=== PATIENT | male | born 1975 | race Caucasian/White ===

== ENCOUNTER 2019-07-08 10:02 | Emergency (ER) | payer SELFPAY ==
--- NOTE | 2019-07-08 10:24 | ER Document Report ---
ED Medical Screen (RME) - General Chief Complaint: Flank Pain Stated Complaint: FLANK PAIN Time Seen by Provider: 07/08/19 10:13 Notes: Patient is a 44-year-old male who presents to the emergency department with a chief complaint of bilateral low back pain. He states the pain is a burning/sharp feeling and it radiates down both legs. His pain started about 3 days ago. Patient also states that he has a metallic taste in his mouth. He is supposed to be taking lisinopril, but he has not been taking it due to not having insurance. Exam: No CVA tenderness noted. I have greeted and performed a rapid initial assessment of this patient. A comprehensive ED assessment and evaluation of the patient, analysis of test results and completion of medical decision making process will be conducted by an additional ED providers. TRAVEL OUTSIDE OF THE [place] IN LAST 30 DAYS: No - Related Data Allergies/Adverse Reactions: No Known Allergies Allergy (Verified 07/08/19 10:03) Past Medical History - Social History Frequency of alcohol use: None Drug Abuse: None - Past Medical History Cardiac Medical History: Reports: Hx Hypertension Renal/ Medical History: Denies: Hx Peritoneal Dialysis Psychiatric Medical History: Reports: Hx Depression Traumatic Medical History: Reports: Hx Spine Fracture, Hx Traumatic Brain Injury Past Surgical History: Reports: Hx Tonsillectomy - Immunizations Hx Diphtheria, Pertussis, Tetanus Vaccination: Yes Physical Exam - Vital signs Vitals: Temp Pulse Resp BP Pulse Ox 98.1 F 83 16 157/88 H 95 07/08/19 10:05 07/08/19 10:05 07/08/19 10:05 07/08/19 10:05 07/08/19 10:05 Course - Vital Signs Vital signs: Temp Pulse Resp BP Pulse Ox 98.1 F 83 16 157/88 H 95 07/08/19 10:05 07/08/19 10:05 07/08/19 10:05 07/08/19 10:05 07/08/19 10:05
--- NOTE | 2019-07-08 10:28 | ER Document Report ---
HPI - HPI Patient complains to provider of: back pain Time Seen by Provider: 07/08/19 10:13 Onset/Duration: Gradual Quality of pain: Achy Severity: Moderate Pain Level: 3 Context: This is a 44 yr old male pt with the listed pmh, who has a hx of htn but is not compliant with his lisinopril for over a year, presenting with an acute exacerbation of their chronic lower back pain and sciatica. Patient states that this has been ongoing for 3 days. Patient states that the pain is a sharp achy 7 out of 10 pain with radiation down both legs. typical of his usual pain. nothing different. pt worried it may be a kidney issue so he has been drinking lots of water. Patient states that movement and palpation make the pain worse and rest makes the pain better. Patient denies any numbness, tingling, change of bowel or bladder habits or signs or symptoms of saddle anesthesia. Patient states that secondary to the pain, they have come to the emergency department. No spinal s urgeries. No other falls or trauma. no IV drug use. otc meds not helping much, he also took half of a friends opana and states that didn't help at all and he felt like it made the pain worse. no hx of diabetes or asthma. no recent abx or steroids. no fevers, uti sx, or genitalia complaints. pt able to walk. pt hasn't sought care until now. Patient denies all other complaints at this time. Associated Symptoms: denies: Chest pain, Productive cough, Diarrhea, Fever, Headache, Hurts to breath, Leg swelling, Nausea, Vomiting, Shortness of breath, Weakness Exacerbated by: Movement, Walking Relieved by: Standing, Remaining still Similar symptoms previously: Yes Recently seen / treated by doctor: No - ROS Systems Reviewed and Negative: Yes All other systems reviewed and negative - to include 10 systems, unless mentioned in the hpi - DERM Skin Color: Normal, [place] Past Medical History - General Information source: Patient - Social History Smoking Status: Current Every Day Smoker Frequency of alcohol use: None Drug Abuse: None Family History: DM, Hypertension Patient has suicidal ideation: No Patient has homicidal ideation: No - Past Medical History Cardiac Medical History: Reports: Hx Hypertension - not compliant with meds Renal/ Medical History: Denies: Hx Peritoneal Dialysis Musculoskeletal Medical History: Reports Hx Arthritis - hx of L4 disc disease Psychiatric Medical History: Reports: Hx Depression Traumatic Medical History: Reports: Hx Traumatic Brain Injury Infectious Medical History: Reports: None Past Surgical History: Reports: Hx Tonsillectomy - Immunizations Immunizations up to date: Yes Hx Diphtheria, Pertussis, Tetanus Vaccination: Yes Vertical Provider Document - CONSTITUTIONAL Notes: Vital signs: All vital signs were reviewed per nursing notes. Gen. Appearance: Nontoxic, patient of stated age, sitting comfortably in the bed. pleasant, obese middle aged white male, smiling, speaking in full sentences, in no sign of pain or resp distress other than appears to have pain with going from sitting to standing and from standing to sitting, nontoxic Psychiatric: Alert and oriented x3, pleasant and very conversational, normal affect. Skin: Warm, pink, dry, normal turgor, no rashes. no grossly visible overlying skin changes or signs of trauma. HEENT: Normocephalic, atraumatic, no vargas signs. no raccoon eyes, pupils are equal and reactive to light, extraocular muscles intact, tympanic membranes and canals normal bilat, mucosal membranes moist, pink conjunctiva, no pharyngeal erythema no tonsilar exudate. no drooling, tripoding, voice change or stridor, uvula midline. tongue protrudes midline Neck: Supple, no tenderness, no lymphadenopathy. full rom and full strength. no meningeal signs. no signs of central cord syndrome CV: Regular rate and rhythm, no murmurs Lungs: Clear to auscultation bilaterally, no wheezes, symmetrical chest rise. no chest wall ttp Abdomen: Soft, nontender, nondistended, good bowel sounds, no rebound, rigidity, guarding or peritoneal signs. No CVA tenderness bilaterally. This is a nonacute abdomen. No tenderness over McBurney's point. no grossly visible or palpable abdominal hernias Genitalia: pt deferred Rectal: deferred; however, no sign of loss of bowel or bladder, no soiling of clothing Back: There is increased tissue tension over the paralumbar musculature on the bilat sides. Palpation to this region did reproduce patient's pain exactly. There is no tenderness to palpation along the midline of the cervical, thoracic or lumbar spine. There are no step-offs or deformities noted. no overlying skin changes. Extremities: Distal pulses two out of four, good capillary refill, no edema, cyanosis or clubbing. full rom and full strength in all extremities with pain on bilat hip flexion and extension. no swelling or ttp of the extremities. normal gait. 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 neg nato sign. neg morgan squeeze. no drop foot. no shortening or rotation of the limbs. no obvious deformities. Neuro: Cranial nerves II through XII intact, normal speech, cerebellar function intact. Symmetric smile and faces. reflexes wnl. motor and sensation intact to light touch. - INFECTION CONTROL TRAVEL OUTSIDE OF THE [place] IN LAST 30 DAYS: No Course - Re-evaluation Re-evalutation: 07/08/19 11:39 Pt here for an acute exacerbation of his chronic low back pain and sciatica. he improved with tx here. labs unremarkable other than a mild hyponatremia. ua neg. he is well appearing and neurononfocal. advised sx care. will dc with robaxin and prednisone taper. gave medication precautions. ice/heat to the area. tylenol for any pain. he has no sign of spinal cord involvement, cauda equina, or central cord syndrome. he had no fall or trauma so no imaging was done. advised to limit his po intake secondary to his mild hyponatremia. gave medication precautions. advised to f/u with pcp/orthospine/neurosurg in 1-2 days. return for any worsening symptoms. vss. well appearing. satting well on ra. neurononfocal. pt understands and agrees to plan. On reexam, pt improved with tx listed. remained stable. nontoxic. well appearing. pain controlled. tolerating po. requesting to go home. case discussed with ER Attending, Dr. Cline, who directed and agrees with plan of care and advised no further workup indicated at this time and pt is stable for dc home with close f/u with pcp/specialist. Documentation achieved through voice recording which my lead to some occasional accidental typographical errors. Extensive efforts have been made to proof read documentation to make sure these are the least as possible. Category Date Time Status CBC WITH DIFF [HEME] Stat Lab 07/08/19 10:35 Completed CMP [COMPREHENSIVE METABOLIC PANEL] [CHEM] Stat Lab 07/08/19 10:35 Received LIPASE [CHEM] Stat Lab 07/08/19 10:35 Received URINALYSIS [URIN] Stat Lab 07/08/19 10:15 Received Ketorolac Tromethamine [Toradol Inj/Pf 30 mg/1 ml Sdv] Med 07/08/19 10:57 Once 30 mg IV NOW ONE 07/08/19 11:44 - Vital Signs Vital signs: Temp Pulse Resp BP Pulse Ox 98.1 F 83 16 157/88 H 95 07/08/19 10:05 07/08/19 10:05 07/08/19 10:05 07/08/19 10:05 07/08/19 10:05 - Laboratory Result Diagrams: 07/08/19 10:35 07/08/19 10:35 Laboratory results interpreted by me: 07/08/19 11:42 Labs- Entire Visit 07/08/19 07/08/19 07/08/19 10:15 10:35 10:35 WBC 5.8 RBC 4.78 Hgb 14.7 Hct 42.0 MCV 88 MCH 30.8 MCHC 35.1 RDW 13.3 Plt Count 193 Seg Neutrophils % 70.8 Lymphocytes % 17.9 Monocytes % 8.2 Eosinophils % 2.8 Basophils % 0.3 Absolute Neutrophils 4.1 Absolute Lymphocytes 1.0 Absolute Monocytes 0.5 Absolute Eosinophils 0.2 Absolute Basophils 0.0 Sodium 131.8 L Potassium 4.4 Chloride 96 L Carbon Dioxide 26 Anion Gap 10 BUN 20 Creatinine 0.73 Est GFR ( Amer) > 60 Est GFR (Non-Af Amer) > 60 Glucose 104 Calcium 9.0 Total Bilirubin 0.5 Direct Bilirubin 0.2 Neonat Total Bilirubin Not Reportable Neonat Direct Bilirubin Not Reportable Neonat Indirect Bili Not Reportable AST 30 ALT 31 Alkaline Phosphatase 56 Total Protein 6.6 Albumin 4.2 Lipase 51.6 Urine Color COLORLESS Urine Appearance CLEAR Urine pH 7.0 Ur Specific [place] 1.001 Urine Protein NEGATIVE Urine Glucose (UA) NEGATIVE Urine Ketones NEGATIVE Urine Blood NEGATIVE Urine Nitrite NEGATIVE Urine Bilirubin NEGATIVE Urine Urobilinogen NEGATIVE Ur Leukocyte Esterase NEGATIVE Urine Mucus (Auto) RARE Urine Ascorbic Acid NEGATIVE Discharge - Discharge Clinical Impression: Hyponatremia Low back pain with bilateral sciatica Qualifiers: Chronicity: acute Back pain laterality: bilateral Qualified Code(s): M54.42 - Lumbago with sciatica, left side; M54.41 - Lumbago with sciatica, right side Condition: Good Disposition: HOME, SELF-CARE Instructions: Sciatica ([facility]), Hyponatremia ([facility]) Additional Instructions: Follow-up with PCP/neurosurg/orthospine in 1 to 2 days. Return for any worsening symptoms. ice/heat to your back. your sodium level was a little low today. have your pcp recheck this. limit your liquid intake. ice/heat to your back. do not work, drive, or operate machinery while taking the muscle relaxers. tylenol for any pain. Prescriptions: Methocarbamol [Robaxin] 1,000 mg PO QID PRN #40 tablet PRN Reason: Muscle Spasms Prednisone [Deltasone 10 mg Tablet] 10 mg PO ASDIR #21 tablet
[2019-07-08 10:52] LABS: ABSOLUTE EOSINOPHILS # (AUTO) 0.2 10^3/uL (0.0-0.6); ABSOLUTE MONOCYTES (AUTO) 0.5 10^3/uL (0.1-1.4); ABSOLUTE NEUT (AUTO) 4.1 10^3/uL (1.7-8.2); BASOPHILS % (AUTO) 0.3 % (0-2); EOSINOPHILS % (AUTO) 2.8 % (0-6); HEMOGLOBIN 14.7 g/dL (13.5-17.0); LYMPHOCYTES % (AUTO) 17.9 % (13-45); MEAN CORPUSCULAR HEMOGLOBIN 30.8 pg (27.0-33.4); MEAN CORPUSCULAR HGB CONC 35.1 g/dL (32.0-36.0); MEAN CORPUSCULAR VOLUME 88 fl (80-97); MONOCYTES % (AUTO) 8.2 % (3-13); PLATELET COUNT 193 10^3/uL (150-450); RED BLOOD COUNT 4.78 10^6/uL (4.35-5.55); RED CELL DISTRIBUTION WIDTH 13.3 % (11.5-14.0); SEGMENTED NEUTROPHILS % (AUTO) 70.8 % (42-78); TOTAL CELLS COUNTED % (AUTO) 100 %; WHITE BLOOD COUNT 5.8 10^3/uL (4.0-10.5)
[2019-07-08 10:57] LABS: APPEARANCE,URINE CLEAR; BILIRUBIN,URINE NEGATIVE (NEGATIVE); COLOR,URINE COLORLESS; GLUCOSE, URINE NEGATIVE (NEGATIVE); KETONES,URINE NEGATIVE (NEGATIVE); LEUKOCYTE ESTERASE,URINE NEGATIVE (NEGATIVE); NITRITE,URINE NEGATIVE (NEGATIVE); PROTEIN,URINE NEGATIVE (NEGATIVE); URINE SPECIFIC GRAVITY 1.001; UROBILINOGEN,URINE NEGATIVE mg/dL (<2.0)
[2019-07-08] MEDS ORDERED: NORMAL SALINE 1000 ML 1,000 ML IV ONE (10:57)
[2019-07-08] MEDS ORDERED: KETOROLAC TROMETHAMINE INJ/PF 30 MG/1 ML SDV IV ONE (10:57)
[2019-07-08 11:08] LABS: ALBUMIN 4.2 g/dL (3.5-5.0); ALKALINE PHOSPHATASE 56 U/L (38-126); ANION GAP 10 (5-19); ASPARTATE AMINO TRANSFERASE 30 U/L (17-59); BILIRUBIN,DIRECT 0.2 mg/dL (0.0-0.4); BILIRUBIN,TOTAL 0.5 mg/dL (0.2-1.3); BLOOD UREA NITROGEN 20 mg/dL (7-20); CARBON DIOXIDE 26 mmol/L (22-30); CHLORIDE 96 mmol/L (98-107); GLUCOSE 104 mg/dL (75-110); POTASSIUM 4.4 mmol/L (3.6-5.0); TOTAL PROTEIN 6.6 g/dL (6.3-8.2)
[2019-07-08 12:18] VITALS: BP 132/84
== END 2019-07-08 12:15 | disposition home or self-care (01) ==
LOC: ER 10:02
DX: M54.42 Lumbago with sciatica, left side (principal); M54.41 Lumbago with sciatica, right side; E87.1 Hypo-osmolality and hyponatremia; I10 Essential (primary) hypertension
CPT/HCPCS: 99284; 96361; 96374; 36415; 83690; 85025; 80053; 81001; J1885; J7030